=== PATIENT | male | born 1985 | race Two or more races ===

== ENCOUNTER 2020-09-01 11:49 | Emergency (ER) | payer MEDICAID ==
[~2020-09-01] VITALS: Ht 182.9 cm; Wt 99.8 kg
[2020-09-01] MEDS ORDERED: MORPHINE SULFATE 4 MG/ML SYR/VIAL IV ONE (12:00)
[2020-09-01] MEDS ORDERED: SODIUM CHLORIDE 0.9% 1,000 ML IV ONE ×2 (12:00)
[2020-09-01] MEDS ORDERED: PROCHLORPERAZINE EDISYLATE 5 MG/ML 2ML VIAL IV ONE (12:00)
[2020-09-01 12:14] LABS: Basophils # (auto) 0 10 ^3/uL (0-0.2); Basophils % (auto) 0.2 % (0.0-2.0); Eosinophils # (auto) 0 10 ^3/uL (0-0.8); Eosinophils % (auto) 0.3 % (0.0-7.0); Hemoglobin 15.4 g/dL (13.5-17.5); Lymphocytes # (auto) 2.1 10 ^3/uL (0.4-5.4); Lymphocytes % (auto) 17.2 % (10.0-50.0); Mean Corpuscular Hemoglobin 30.8 pg (28.0-32.0); Mean Corpuscular Hgb Conc. 33.6 g/dL (32.0-36.0); Mean Corpuscular Volume 91.8 fL (80.0-100.0); Monocytes # (auto) 0.8 10 ^3/uL (0-1.3); Monocytes % (auto) 6.4 % (0.0-12.0); Neutrophils # (auto) 9.1 10 ^3/uL (1.6-8.6); Neutrophils % (auto) 75.9 % (37.0-80.0); Platelet Count (auto) 351 10^3/uL (140-450); Red Blood Cells 5.01 10^6/uL (4.5-5.90); Red Cell Distribution Width 15.4 % (11.8-14.3); White Blood Cell 12.1 10^3/uL (4.4-10.8)
[2020-09-01 12:25] LABS: Albumin 4.2 g/dL (3.4-5.0); Calcium 9.7 mg/dL (8.5-10.1); Potassium 4.3 mmol/L (3.5-5.1)
[2020-09-01 12:28] LABS: BUN/Creatinine Ratio 8.8; Bilirubin, Total 0.4 mg/dL (0.2-1.0); Total Protein 8.8 g/dL (6.4-8.2)
[2020-09-01] MEDS ORDERED: LORazepam 2MG/ML-1ML VIAL IV ONE (12:45)
[2020-09-01 14:18] LABS: Lactic Acid w/Reflex 2.7 mmol/L (0.4-2.0)
[2020-09-01] MEDS ORDERED: ONDANSETRON HCL 4 MG/2 ML VIAL IV ONE (14:30)
[2020-09-01] MEDS ORDERED: HALOPERIDOL LACTATE 5 MG/ML INJ VIAL IM ONE (14:30)
[2020-09-01 15:01] VITALS: BP 125/38
== END 2020-09-01 15:31 | disposition left against medical advice (07) ==
LOC: ER 11:49
DX: R10.84 Generalized abdominal pain (principal); R07.9 Chest pain, unspecified; R11.2 Nausea with vomiting, unspecified; F12.10 Cannabis abuse, uncomplicated
CPT/HCPCS: 36415; 70450; 71045; 74176; 80053; 83605; 85025; 87040; 96361; 96372; 96374; 96375; 99285; J0780; J1630; J2060; J2270; J7030

== ENCOUNTER 2020-10-02 11:12 | Emergency (ER) | payer MEDICAID ==
[~2020-10-02] VITALS: Ht 182.9 cm; Wt 90.7 kg
[2020-10-02] MEDS ORDERED: SODIUM CHLORIDE 0.9% 500 ML IVB ONE (11:30)
[2020-10-02 11:55] LABS: Basophils # (auto) 0 10 ^3/uL (0-0.2); Basophils % (auto) 0.1 % (0.0-2.0); Eosinophils # (auto) 0 10 ^3/uL (0-0.8); Hemoglobin 14.7 g/dL (13.5-17.5); Lymphocytes # (auto) 0.8 10 ^3/uL (0.4-5.4); Lymphocytes % (auto) 6.2 % (10.0-50.0); Mean Corpuscular Hgb Conc. 32.7 g/dL (32.0-36.0); Mean Corpuscular Volume 91.8 fL (80.0-100.0); Monocytes # (auto) 0.8 10 ^3/uL (0-1.3); Monocytes % (auto) 6.5 % (0.0-12.0); Neutrophils % (auto) 87.2 % (37.0-80.0); Platelet Count (auto) 331 10^3/uL (140-450); Red Cell Distribution Width 14.6 % (11.8-14.3); White Blood Cell 12.6 10^3/uL (4.4-10.8)
[2020-10-02 12:03] LABS: Urine Bacteria NONE SEEN /hpf (None Seen); Urine Blood Negative /uL (Negative); Urine Specific Gravity 1.039 (1.001-1.035); Urine WBC 3 /hpf (0 - 3)
[2020-10-02 12:17] LABS: Albumin 4.1 g/dL (3.4-5.0); Calcium 9.1 mg/dL (8.5-10.1); Potassium 3.8 mmol/L (3.5-5.1)
[2020-10-02 12:21] LABS: BUN/Creatinine Ratio 7.9; Bilirubin, Total 0.4 mg/dL (0.2-1.0); Total Protein 8.2 g/dL (6.4-8.2)
[2020-10-02 14:00] VITALS: BP 143/82
[2020-10-02] MEDS ORDERED: SODIUM CHLORIDE 0.9% 500 ML IV ONE (14:30)
== END 2020-10-02 16:10 | disposition left against medical advice (07) ==
LOC: ER 11:12
DX: R10.11 Right upper quadrant pain (principal); R10.12 Left upper quadrant pain; R11.2 Nausea with vomiting, unspecified
CPT/HCPCS: 36415; 74176; 80053; 81001; 83690; 85025; 96360; 96361

== ENCOUNTER 2024-02-03 14:15 | Emergency (ER) | payer OTHER, MEDICAID ==
[~2024-02-03] VITALS: Ht 182.9 cm; Wt 86.4 kg
[2024-02-03 14:22] VITALS: BP 120/91; PULSE 122; RESP 24; O2SAT 99
[2024-02-03] MEDS ORDERED: SODIUM CHLORIDE 0.9% 1,000 ML IV ONE (15:15)
[2024-02-03] MEDS ORDERED: MORPHINE SULFATE 4 MG/ML SYR/VIAL IV ONE (15:15)
[2024-02-03 15:46] LABS: Basophils # (auto) 0 10 ^3/uL (0-0.2); Eosinophils # (auto) 0 10 ^3/uL (0-0.8); Hemoglobin 17.7 g/dL (13.5-17.5); Neutrophils # (auto) 19.9 10 ^3/uL (1.6-8.6)
[2024-02-03 15:49] LABS: Hematocrit 50.9 % (41.0-53.0); Lymphocytes % (auto) 4.2 % (10.0-50.0); Mean Corpuscular Hemoglobin 33.1 pg (28.0-32.0); Mean Corpuscular Hgb Conc. 34.8 g/dL (32.0-36.0); Mean Corpuscular Volume 94.9 fL (80.0-100.0); Monocytes % (auto) 8.9 % (0.0-12.0); Neutrophils % (auto) 86.9 % (37.0-80.0); Red Blood Cells 5.36 10^6/uL (4.5-5.90); Red Cell Distribution Width 12.8 % (11.8-14.3); White Blood Cell 22.9 10^3/uL (4.4-10.8)
[2024-02-03 16:05] LABS: Alanine Aminotransferase 18 U/L (7-40); Albumin 5.4 g/dL (3.2-4.8); Alkaline Phosphatase 72 U/L (46-116); Anion Gap 12 (5-15); Aspartate Aminotransferase 10 U/L (13-40); Blood Urea Nitrogen 13 mg/dL (9-23); Calcium 10.9 mg/dL (8.7-10.4); Carbon Dioxide 23 mmol/L (20-30); Chloride 107 mmol/L (98-107); Glucose 213 mg/dL (74-106); Lipase 30 U/L (12-53); Potassium 3.8 mmol/L (3.5-5.1); Sodium 142 mmol/L (136-145)
[2024-02-03 16:06] LABS: Bilirubin, Total 0.8 mg/dL (0.2-1.0); Total Protein 8.5 g/dL (5.7-8.2)
[2024-02-03 16:11] LABS: Lactic Acid w/Reflex 2.8 mmol/L (0.4-2.0)
== END 2024-02-04 08:26 | disposition left against medical advice (07) ==
LOC: EDBD 14:15 → ER 14:15
DX: R10.11 Right upper quadrant pain (principal); F12.90 Cannabis use, unspecified, uncomplicated
CPT/HCPCS: 36415; 74176; 80053; 83605; 83690; 85025